=== PATIENT | female | born 1990 | race Caucasian/White ===

== ENCOUNTER 2024-10-29 12:20 | Outpatient (AMB) | payer OTHER, SELFPAY ==
--- NOTE | 2024-10-29 12:22 | A.OFFPC_ITS ---
Vital Signs 3 10/29/24 12:29 Height 5 ft 1 in Weight 110 lb BMI 20.8 BP 122/68 Blood Pressure Location Lt brachial Position Sitting Respiration 12 Pulse 72 Pulse Source Pulse Oximeter Temp 97.2 F Temp Source Oral Pulse Oximetry (%) 98 Oxygen Delivery Method Room Air Intake Visit Reasons: Anxiety/Depression Intake Note: New patient to establish care. Scalloper Required: No Allergies lamotrigine Allergy (Severe, Verified 10/29/24 12:44) Rash Medication List - Last Reconciled 10/29/24 by Ellen Yuen, [facility]- escitalopram oxalate mg PO lorazepam 0.5 mg PO DAILY PRN melatonin 3 mg PO BEDTIME olanzapine 2.5 mg PO BEDTIME Tobacco use date assessed: 10/29/24 Dental Screening Dental Screen Date: 10/29/24 Did you have a dental visit in the last 12 months?: No Did you have a dental problem in the last 6 months where you did not have access to dental care?: No Was dental information given to patient?: No HPI HPI Comments 2 History of Present Illness0 Details 34 y/o F with SWETHA, MDD Hospitalizations: [facility], then HRI in [place] for psych. Surgery: None Social: to , [place], no children. Fhx: Dad bipolar Health Maintenance Tdap declined Pap Specialists: Prescriber Telehealth Counselor - does not have, referred today. Here today to [facility] care Last PCP Peds: No medical records SWETHA/MDD present entire life; Jun and September 2024 started w/ panic attacks. See below for details, documented by This started after THC gummy. Paranoia [place] like she was dying Wondered about going to heaven or hell Thought was in on it Did not seek care Did not use THC again She was back to baseline after this. Then in September while at home, late around midnight, had caffiene via energy drinks x 2, had another panic attack. Same sx but not as severe. No hallucinations. [place] like she couldnt get out of it Shaking [place] like adrenaline mcmahon [place] suspicious of and family [place] like nightmare and couldnt wake up Was up all night could not sleep Sister was called She was brought to [facility] for eval and tx as she remained sx. I do not have these records Was awake for 36 hours Placed in crisis DX with psychosis [place] better after sleeping Was then brought to [place] , kim MAK, admitted for 3 days Was able to be sent home This is where the meds she is on now came from Last week had allergic reaction to lamotrigne Now on SSRI Had panic attack during med transition Did better this time Currently feels safe Denies SI/HI Denies chance of , just had period See note from below: Exam Awake alert NAD conjunctival inj bilat RRR LS CTAB Gaurded, mildly anxious yet appropriate Plan Declined Tdap Check labs Get records Refer to counseling RTO 6-8 weeks to review, sooner PRN Total time spent caring for the patient today was 45 minutes. This includes time spent before the visit reviewing the chart, time spent during the visit, and time spent after the visit on documentation, reviewing laboratory results, diagnostic imaging, medications, performing a medically necessary evaluation, counseling on diagnoses, care coordination, ordering appropriate tests, ordering appropriate medications, review of tests performed by other providers, reporting test results with the patient, communication with other healthcare providers. [facility] Medical History (Updated 10/29/24 @ 13:08 by Ellen Yuen, [facility]) Anxiety and depression Surgical History (Updated 10/29/24 @ 12:35 by Jannie Camp MA) No pertinent past surgical history Family History (Updated 10/29/24 @ 12:36 by Jannie Camp MA) Mother HTN (hypertension) High cholesterol Father HTN (hypertension) High cholesterol Substance abuse Mental health disorder Social History (Updated 10/29/24 @ 12:32 by Jannie Camp MA) Household Members: Spouse Both parents involved: No Caregiver staying overnight: No Housing: House Are you a primary youth care specialist to a significant other at home: No Do you presently have visiting nurse or other home services: No 75 years or older and lives alone: No Alcohol intake: current Alcohol intake frequency: a few times a month Patient Tobacco Use Status: Never used Tobacco e-Cigarette/Vaping Use: Never Used Second Hand Smoke Exposure: No service: No Current occupational status: unemployed Cognitive needs: No Hearing needs: No Vision needs: No Questionnaire PHQ-9 Over the last 2 weeks, how often have you been bothered by any of the following problems? 1. Little interest or pleasure in doing things: several days 2. Feeling down, depressed, or hopeless: several days 3. Trouble falling or staying asleep, or sleeping too much: not at all 4. Feeling tired or having little energy: several days 5. Poor appetite or overeating: not at all 6. Feeling bad about yourself - or that you are a failure or have let yourself or your family down: not at all 7. Trouble concentrating on things, such as reading the newspaper or watching television: not at all 8. Moving or speaking so slowly that other people could have noticed. Or the opposite - being so fidgety or restless that you have been moving around a lot more than usual: several days 9. Thoughts that you would be better off or of hurting yourself in some way: not at all Total score: 4 Depression Screening Interpretation: Negative Depression Screening Done: Yes 73853 - PHQ-9 Billing: Yes Source: Developed by Drs. Etienne Hardy, Maddy Pulliam, Derek Oleary and colleagues, with an educational aide from [employer]. Thrive Questionnaire Date Thrive assessed: 10/29/24 I am a: Patient What is your living situation today?: I have a steady place to live Within the past 12 months, did the food you bought not last and you didn't have the money to get more?: Never true Within the past 12 months, did you worry whether your food would run out before you got money to buy more?: Never true Do you have trouble paying for medicines?: No Do you have trouble getting transportation to medical appointments?: No Do you have trouble paying your heating and electricity bill?: No Do you have trouble taking care of your child, family member or friend?: No Do you have trouble with day-to-day activities such as bathing, preparing meals, shopping, managing finances, etc.?: No Are you currently unemployed and looking for a job?: No Are you interested in more education?: No Please select the resources that you would like help with: None Currently or been in a relationship where the following occur: No concerns reported THRIVE Score: 0 AUDIT C Alcohol Use Questionnaire (AUDIT-C) 1. How often do you have a drink containing alcohol?: Monthly or less 2. How many drinks containing alcohol do you have on a typical day when you are drinking?: 1 or 2 3. How often do you have six or more drinks on one occasion?: Never Total Score: 1 Score Reviewed/Action Taken: Yes SWETHA-7 AMB Questionnaire SWETHA-7 Date SWETHA - 7 assessed: 10/29/24 Feeling nervous, anxious, or on edge: 1 = Several days Not being able to stop or control worryin = Several days Worrying too much about different things: 1 = Several days Trouble relaxin = Several days Being so restless that it is hard to sit still: 1 = Several days Becoming easily annoyed or irritable: 1 = Several days Feeling afraid as if something awful might happen: 1 = Several days Total SWETHA-7 score (0-4 normal; 5-9 mild; 10-14 moderate; 15-21 severe): 7 Source: Developed by Drs. Etienne Hardy, Maddy Pulliam, Derek Oleary and colleagues, with an educational aide from [employer]. SWETHA-7 Assessment Billing SWETHA-7 Assessment Tool: SWETHA-7 Assessment 22932 Physical exam (Primary Care) Vital Signs: Last Vital Signs Temp 97.2 F 10/29/24 12:29 Pulse 72 10/29/24 12:29 Resp 12 10/29/24 12:29 BP 122/68 10/29/24 12:29 Pulse Ox 98 10/29/24 12:29 Oxygen Delivery Method Room Air 10/29/24 12:29 BMI result Body Mass Index 20.8 Tobacco/Smoking Status: Tobacco use Status Tobacco use date assessed 10/29/24 10/29/24 12:26 Patient Tobacco Use Status Never used Tobacco 10/29/24 12:32 e-Cigarette/Vaping Use Never Used 10/29/24 12:32 PHQ-9: PHQ-9 Score PHQ-9: Total score 4 10/29/24 12:22 Depression Screening Interpretation: Negative Thrive Assessment: Date of Thrive Assessment Date Thrive assessed 10/29/24 10/29/24 12:22 Currently or been in a relationship where the following occur: No concerns reported Coding Level of Care Code New Pt Level 4 (84091) Complex EM visit Add On G2211 Diagnoses Encounter to establish care Z76.89 SWETHA (generalized anxiety disorder) F41.1 Severe episode of recurrent major depressive disorder, with psychotic features F33.3 Major depression episode severity: severe Psychotic features: with psychotic features Panic attack F41.0 Family history of bipolar disorder Z81.8 Tetanus, diphtheria, and acellular pertussis (Tdap) vaccination declined Z28.21 History of admission to inpatient psychiatry department Z86.59 Additional Codes SWETHA-7 Assessment Billing - SWETHA-7 Assessment Tool: SWETHA-7 Assessment 11324 ([id number]) PHQ-9 - 25715 - PHQ-9 Billing: Yes ([id number]) Assessment & Plan Assessment & Plan (1) Encounter to establish care: Code(s): Z76.89 - Persons encountering health services in other specified circumstances (2) SWETHA (generalized anxiety disorder): Code(s): F41.1 - Generalized anxiety disorder Category: Medical (3) MDD (major depressive disorder), recurrent episode: Code(s): F33.9 - Major depressive disorder, recurrent, unspecified Category: Medical Qualifiers: Major depression episode severity: severe Psychotic features: with psychotic features Qualified Code(s): F33.3 - Major depressive disorder, recurrent, severe with psychotic symptoms (4) Panic attack: Code(s): F41.0 - Panic disorder [episodic paroxysmal anxiety] Category: Medical (5) Family history of bipolar disorder: Comment: dad Code(s): Z81.8 - Family history of other mental and behavioral disorders Category: Medical (6) Tetanus, diphtheria, and acellular pertussis (Tdap) vaccination declined: Code(s): Z28.21 - Immunization not carried out because of patient refusal Category: Medical (7) History of admission to inpatient psychiatry department: Onset Date: ~09/2024 Code(s): Z86.59 - Personal history of other mental and behavioral disorders Category: Medical Plan . Orders: Orders 2 IRON PROFILE Today F33.9 - Major depressive disorder, recurrent, unspecified, F41.0 - Panic disorder [episodic paroxysmal anxiety], F41.1 - Generalized anxiety disorder Lipid Panel Today F33.9 - Major depressive disorder, recurrent, unspecified, F41.0 - Panic disorder [episodic paroxysmal anxiety], F41.1 - Generalized anxiety disorder Microalbumin, Random (w Creat) Today F33.9 - Major depressive disorder, recurrent, unspecified, F41.0 - Panic disorder [episodic paroxysmal anxiety], F41.1 - Generalized anxiety disorder Vitamin B12 and Folate Today F33.9 - Major depressive disorder, recurrent, unspecified, F41.0 - Panic disorder [episodic paroxysmal anxiety], F41.1 - Generalized anxiety disorder Complete Blood Count no Diff Today F33.9 - Major depressive disorder, recurrent, unspecified, F41.0 - Panic disorder [episodic paroxysmal anxiety], F41.1 - Generalized anxiety disorder Comprehensive Met. Panel Today F33.9 - Major depressive disorder, recurrent, unspecified, F41.0 - Panic disorder [episodic paroxysmal anxiety], F41.1 - Generalized anxiety disorder Ferritin Today F33.9 - Major depressive disorder, recurrent, unspecified, F41.0 - Panic disorder [episodic paroxysmal anxiety], F41.1 - Generalized anxiety disorder Hemoglobin A1c Today F33.9 - Major depressive disorder, recurrent, unspecified, F41.0 - Panic disorder [episodic paroxysmal anxiety], F41.1 - Generalized anxiety disorder TSH reflex Free T4 Today F33.9 - Major depressive disorder, recurrent, unspecified, F41.0 - Panic disorder [episodic paroxysmal anxiety], F41.1 - Generalized anxiety disorder Vitamin D 25-OH Total Today F33.9 - Major depressive disorder, recurrent, unspecified, F41.0 - Panic disorder [episodic paroxysmal anxiety], F41.1 - Generalized anxiety disorder Referrals 2 Nurse Navigator Referral F33.9 - Major depressive disorder, recurrent, unspecified, F41.0 - Panic disorder [episodic paroxysmal anxiety], F41.1 - Generalized anxiety disorder, Z81.8 - Family history of other mental and behavioral disorders Patient Instructions: Walk-In Care (Urgent Care): We Make it Easy Walk-in for urgent medical issues such as: ? Seasonal Allergies ? Insect Bites ? Cough ? Diarrhea ? Acute Asthma Attacks ? Back, Knee or Joint Pain ? Ear Infection ? Fever without a Rash ? Headaches ? Nausea ? [place] Eye, Rash or Skin Irritation ? Sore Throat ? Sports Physicals ? Vomiting Most insurances are accepted. Patients do not need to be part of the [facility] to seek care at the walk-in clinic. Locations [facility] Dasha Richardson, [place] [address] ? [phone] [facility] in [place] provides services to ages 18 and over. Open Saturday-Saturday: 8 a.m. to 5 p.m. and Saturday: 9 a.m. to 3 p.m.* *Hours may vary due to staffing availability. To confirm Walk-In Care hours in [place], please call [phone]. [address] [place] [address] ? [phone] [facility] Walk-In Care in [place] provides services to ages 12 and over. Open Saturday-Saturday: 8 a.m. to 5 p.m. Hours may vary due to staffing availability. To confirm Walk-In Care hours in [place], please call [phone]. LABORATORY SERVICES: [facility] ? Primary Location [address] [place] [address] Saturday through Saturday 6:00 AM ? 5:00 PM Saturday 7:00 AM ? 11:00 AM* [phone] The [facility] is centrally located near the front entrance of the [facility] for easy outpatient access. Convenient parking is provided for outpatients. *Hours may vary due to staffing availability. To confirm Laboratory hours for any location, please call [phone]. Offsite Location For your convenience, we offer offsite laboratory draw stations at the following locations: [address] [place] [address] ? [address], [address] Saturday through Saturday 7:30 AM ? 1:00 PM* [phone] *Hours may vary due to staffing availability. To confirm Laboratory hours for any location, please call [phone]. [place] ? [address] Saturday through Saturday 6:00 AM ? 3:30 PM* Saturday 6:30 AM ? 3 PM* [phone] *Hours may vary due to staffing availability. To confirm Laboratory hours for any location, please call [phone] [place] [address] Saturday through Saturday 7:30 AM ? 4:00 PM* [phone] *Hours may vary due to staffing availability. To confirm Laboratory hours for any location, please call [phone] [place] [address] Saturday through 9:00 AM ? 4:00 PM* *Hours may vary due to staffing availability. To confirm Laboratory hours for any location, please call [phone]. Appointments are not necessary. Walk-ins are welcome. Like all the departments throughout the [facility], our Lab undergoes frequent reviews to ensure the quality and accuracy of test results, and our staff takes special pride in its status as a nationally accredited facility. Patient Portal: ONE PATIENT. ONE RECORD. BETTER CARE. [facility] has a fully integrated, cutting- edge mobile electronic health information system that has revolutionized the way we care for our patients and manage our organization. This system improves communication and coordination enabling us to provide safe, higher-quality care, and an overall positive experience for staff and patients. Our first priority, as always, is to deliver the highest quality care possible. The system is running in the background supporting that priority. This portal is for all [facility] services and practices. If you are experiencing any technical difficulties with enrolling or logging into the Patient Portal please complete the [facility] Patient Portal Technical Support Form. [facility] now offers a new secure on-line interactive tool for patients to review their health information ? ?Patient Portal. This interactive web portal will enable patients and their families to take an active role in their care by providing easy, secure access to their health information via the internet. The Patient Portal provides patients with instant access to their health information, including laboratory results, medications, allergies, demographic information, visit history, and more. In addition to managing their own care, parents and health care proxies with authorized consent will appreciate the ability to access the records of those individuals for whom they provide care. Please note: if you wish to gain access (Proxy) to another patient?s portal, you will be required to come to the Medical Records Department in person at [facility]. Both the patient giving proxy access and the proxy will need to provide photo identification and complete the appropriate authorization. The Patient Portal also allows track their appointments online. The [facility] Patient Portal also saves patients time by allowing them to submit updates to their demographic and contact information prior to their visits. Portal email notifications will also alert patients to any new activity on their portal, such as test results and new appointments. In order to initially enroll in the [facility] Patient Portal, you will need to enter some required information including the following: * your [facility] Medical Record number * your personal home email address * name * date of Please note: In order to enroll in the [facility] Patient Portal, we need to have your email address on file in your electronic medical record. ?The email address needs to be specific for one person (yourself) in order for your Portal enrollment to be successful. ?You can update your email address in person with our Registration staff when you are registering for a hospital visit. ?Otherwise, you will need to come to the Health Information Management (Medical Records) Department at [facility]. ?We are open from Saturday ? Saturday from 7:30 a.m. ? 4:30 p.m. ?You will be required to present a photo id. Once you have successfully enrolled in the Patient Portal, you will receive a one-time user id and password for the Portal, sent to your email address. ?This will allow you to log into the Patient Portal within 99 hrs and reset your own logon id and password, and define personal security questions. ?Once your permanent login and password have been set, you can log into the [facility] Patient Portal at any time via the blue button above or from the Portal Logon button on any page of the [facility] website. [facility] and [facility] encourage all of our patients to enroll in Patient Portal as it presents a valuable opportunity for patients and their families to actively participate in their care and stay healthy Welcome to [facility]. ?We look forward to working with you. National Suicide and Crisis Lifeline: Available 24 hours a day, 7 days a week, 365 days a year Dial 988 with any telephone to speak to someone immediately [facility] [address], [place] [id number] , Walk ins [facility] (Mental / Behavioral health therapist: [address], [place] [id number] [facility] at [facility]: [address] [place] [address] Open from 10am - 12pm (walk ins welcome) [facility] Crisis Services: [address] [place] [address] Walk in hours from 10am - 12pm Behavioral health Network: [address] [place] [address] [address] [place] [address] Saturday through Saturday 8am - 8pm Saturday and Saturday 9am - 5pm Crisis Hotlines Suicide prevention, domestic violence, and other crisis hotlines for youth, young adults, and their friends and families. [facility]: [facility] Safeline helps youth who have run away, are thinking about running away, or who already ran away but are ready to come home. Parents and guardians can also contact the hotline if they are worried about their child running away or if their child has already left home. The hotline is available 24 hours a day, seven days a week. Youth, parents, and guardians can also use the online chat feature on the [facility]'s website to ask for help and get support, or can send a text to [facility]. [facility] National Suicide Prevention Lifeline: The [place] Suicide Prevention Lifeline is a network of local crisis centers that are available 03/12 to provide support for youth and adults who are in any kind of emotional crisis. In addition to the main hotline number listed above, there are several other numbers to call depending on your needs: Finnish Language: Deaf and Hard of [phone] Veterans: Disaster Distress: Anyone can also use their online chat feature on their website. [place] Suicide Prevention Lifeline [facility] Helpline: The [facility] Helpline is available to anyone in [place] who is need of emotional support. Anyone can call or text the helpline to receive help from specially trained volunteers. [place] high school and college students can also get online support through the [employer]_ program. For high school students, volunteers ages 15-18 are available Saturday- from 6-9PM. For college students, [employer] is available Saturday-Saturday from 5-9PM. The Aaron Project - The Aaron Project is a 03/12 crisis intervention and suicide prevention hotline for LGBTQ youth. Youth can also text Aaron to for support, or use the online chat feature on the [employer] Project's website. [employer] is available Saturday-Saturday between 3-10PM. [employer] is available seven days a week between 3-10PM. SafeLink: SafeLink is for anyone who is being affected by domestic violence or dating violence. Volunteers at [employer] speak Thai and Finnish, and [employer] also has a service that can provide translation in more than 130 languages. TTY:
[2024-10-29 12:29] VITALS: BP 122/68; PULSE 72; RESP 12; TEMP 36.2; O2SAT 98; BMI 20.8
--- OUTSIDE RECORDS SUMMARY | 2024-10-29 13:30 | XMS_ITS | Clinical Summary ---
Author Organization [facility] Address [address] [place] [address] Phone Care Team Providers Care Forming Process Worker Name Role Phone Fausto Fernandez MD Primary Care Provide r Allergies No known active allergies Medications No known medications Encounters Date Type Department Care Team Description 09/20/2024 11:16 AM EDT - 09/21/2024 9:57 AM EDT Emergency [facility] Emergency [address] [place] [address] Celia Cota DO Psychosis, unspecified psychosis type ([facility] V24, [facility] V28) (Primary Dx) Discharge Disposition: Psych[facility] Hospital from Last 3 Months Medical History Medical History Date Comments Patient denies medical problems 09/20/2024 Bipolar disorder, unspecified ([facility] V24, [facility] V28) 09/20/2024 per [facility] clinician Social History Tobacco Use Types Packs/Day Years Used Date Smoking Tobacco: Never Smokeless Tobacco: Never Tobacco Cessation:Counseling Given: Not Answered Alcohol Use Standard Drinks/Week Comments Yes 0 (1 standard drink = 0.6 oz pur e alcohol) social drinking only Comments Unknown Sex and Gender Information Value Date Recorded Sex Assigned at Not on file Legal Sex Female 6:59 AM EST Gender Identity Not on file Sexual Orientation Not on file Obstetrics History Last Filed Vital Signs Vital Sign Reading Time Taken Comments Blood Pressure 142/86 09/21/2024 3:10 AM EDT Pulse 104 09/21/2024 3:10 AM EDT Temperature 36.7 C (98 F) 09/21/2024 3:10 AM EDT Respiratory Rate 16 09/21/2024 3:10 AM EDT Oxygen Saturation 95% 09/21/2024 3:10 AM EDT Inhaled Oxygen Concentration - - Weight 47.6 kg (105 lb) 09/20/2024 11:56 AM EDT Height 154.9 cm (5' 1 ) 09/20/2024 11:56 AM EDT Body Mass Index 19.84 09/20/2024 11:56 AM EDT Plan of Treatment Health Maintenance Due Date Last Done Comments DTaP,Tdap,and Td Vaccines (1 - Tdap) 02/22/2011 Hepatitis B Vaccines (1 of 3 - 19+ 3-dose series) 02/22/2011 Cervical Cancer Screening: P ap Smear 02/22/2013 COVID-19 Vaccine (2023-2 5 season) 2024 Depression Screening 09/20/2024 HIV Screening 09/20/2024 Hepatitis C Screening 09/20/2024 Social Influencers of Health Screening 09/20/2024 Influenza Vaccine (Season Ended) 2025 HIB Vaccines Aged Out No longer eligi ble based on patient's age to complete this topic HPV Vaccines Aged Out No longer eligi ble based on patient's age to complete this topic Hepatitis A Vaccines Aged Out No long er eligible based on patient's age to complete this topic IPV Vaccines Aged Out No longer eligi ble based on patient's age to complete this topic MMR Vaccines Aged Out No longer eligi ble based on patient's age to complete this topic Meningococcal ACWY Vaccine Aged Out N o longer eligible based on patient's age to complete this topic Meningococcal B Vaccine Aged Out No l onger eligible based on patient's age to complete this topic Pneumococcal Vaccine: Pediat rics (0 to 5 Years) and At-Risk Patients (6 to 64 Years) Aged Out No longer eligible b ased on patient's age to complete this topic RSV Immunization Patients Un vernon 20 months Aged Out No longer eligible b ased on patient's age to complete this topic Varicella Vaccines Aged Out No longer eligible based on patient's age to complete this topic Procedures Procedure Name Priority Date/Time Associated Diagnosis Comments AYALA URINE CULTURE TUBE STAT 09/20/2024 11:40 AM EDT URINALYSIS WITH REFLEX MICROSCOPIC AND CULTURE STAT 09/20/2024 11:40 AM EDT URINALYSIS WITH REFLEX MICROSCOPIC AND CULTURE STAT 09/20/2024 11:40 AM EDT POC , URINE DIAGNOSTIC STAT 09/20/2024 11:17 AM EDT METHADONE SCREEN, URINE STAT 09/20/2024 11:11 AM EDT PHENCYCLIDINE, URINE STAT 09/20/2024 11:11 AM EDT BUPRENORPHINE SCREEN, URINE STAT 09/20/2024 11:11 AM EDT DRUG ABUSE SCREEN 8A PANEL, URINE STAT 09/20/2024 11:11 AM EDT CBC WITH AUTO DIFFERENTIAL STAT 09/20/2024 10:54 AM EDT SALICYLATE LEVEL STAT 09/20/2024 10:5 4 AM EDT ACETAMINOPHEN LEVEL STAT 09/20/2024 1 0:54 AM EDT ETHANOL STAT 09/20/2024 10:54 AM EDT COMPREHENSIVE METABOLIC PANEL STAT 09/20/2024 10:54 AM EDT CBC AND DIFFERENTIAL STAT 09/20/2024 10:54 AM EDT from Last 3 Months Results * Urinalysis with reflex microscopic and culture (09/20/2024 11:40 AM EDT) Specific Elbert Urine 1.011 1.003 - 1.030 LAB URINALYSIS - AUTOMATED METHOD 09/20/2024 12:29 PM EDT [facility] pH, Urine 6.0 5.0 - 8.0 pH LAB URINALYSIS - AUTOMATED METHOD 09/20/2024 12:29 PM EDT [facility] Leukocytes, Urine Negative Negative LAB URINALYSIS - AUTOMATED METHOD 09/20/2024 12:[address] [facility] Nitrite, Urine Negative Negative LAB URINALYSIS - AUTOMATED METHOD 09/20/2024 12:[address] [facility] Protein, Urine Trace <=Trace mg/dL LAB URINALYSIS - AUTOMATED METHOD 09/20/2024 12:[address] [facility] Glucose, Urine Negative Negative mg/dL LAB URINALYSIS - AUTOMATED METHOD 09/20/2024 12:[address] [facility] Ketones, Urine Negative Negative mg/dL LAB URINALYSIS - AUTOMATED METHOD 09/20/2024 12:[address] [facility] Urobilinogen, Urine 0.2 0.2 - 1.0 mg/dL LAB URINALYSIS - AUTOMATED METHOD 09/20/2024 12:[address] [facility] Bilirubin, Urine Negative Negative LAB URINALYSIS - AUTOMATED METHOD 09/20/2024 12:[address] [facility] Blood, Urine Negative Negative LAB URINALYSIS - AUTOMATED METHOD 09/20/2024 12:[address] [facility] Urine Urine specimen obtained by clean catch procedure / Unknown Non-blood Collection / Unknown 09/20/2024 11:40 AM EDT 09/20/2024 12:07 PM EDT us Celia Cota DO LAB URINE ORDERABLES Hortencia l Result [facility] [address] [place] [address], [place] [phone] * Ayala urine culture tube (09/20/2024 11:40 AM EDT) Extra Tube Hold for add-ons. 09/20/2024 2:01 PM EDT [facility] Comment:Auto resulted. Urine Urine specimen obtained by clean catch procedure / Unknown Non-blood Collection / Unknown 09/20/2024 11:40 AM EDT 09/20/2024 12:07 PM EDT Celia Cota DO LAB URINE ORDERABLES Hortencia l Result [facility] [address] [place] [address], [place] [phone] * POC , urine manually resulted (09/20/2024 11:17 AM EDT) HCG, Ur POC Negative Negative POC hCG Int QC Pass? Yes Yes Urine Urine specimen obtained by clean catch procedure / Unknown 09/20/2024 11:17 AM EDT Osmaneleonora Tarik Mushtaq Cota DO POINT OF CARE TEST ENTER/ EDIT ORDERABLES Final Result * Drug abuse screen 8a panel, urine (09/20/2024 11:11 AM EDT) Amphetamine Screen, Ur Negative Negative LAB CHEMISTRY METHOD 09/20/2024 12:37 PM EDT [facility] Comment:Certain OTC medicati ons containing ephedrine, phenylephrine, pseudoephedrine and phenylpropanolamine can cause false positive results. Barbiturate Screen, Ur Negative Negative LAB CHEMISTRY METHOD 09/20/2024 12:37 PM EDT [facility] Benzodiazepine Screen, Ur Negative Negative LAB CHEMISTRY METHOD 09/20/2024 12:37 PM EDT [facility] Cocaine Screen, Ur Negative Negative LAB CHEMISTRY METHOD 09/20/2024 12:37 PM EDT [facility] Opiate Screen, Ur Negative Negative LAB CHEMISTRY METHOD 09/20/2024 12:37 PM EDT [facility] Cannabinoid (THC) Screen, Ur Negative Negative LAB CHEMISTRY METHOD 09/20/2024 12:37 PM EDT [facility] Comment:Specimens from patie nts taking pantoprazole sodium (Protonix) have been shown to produce false positive results. Oxycodone Screen, Ur Negative Negative LAB CHEMISTRY METHOD 09/20/2024 12:37 PM EDT [facility] Fentanyl, Ur Negative Negative LAB CHEMISTRY METHOD 09/20/2024 12:37 PM EDT [facility] Urine Urine specimen obtained by clean catch procedure / Unknown Non-blood Collection / Unknown 09/20/2024 11:11 AM EDT 09/20/2024 12:08 PM EDT [facility] - 09/20/2024 12:37 PM EDT Assay cutoffs: Amphetamines 1000 ng/mL Barbiturates 200 ng/mL Benzodiazepines 200 ng/mL Cocaine 300 ng/mL Fentanyl 1 ng/mL Opiates 300 ng/mL Oxycodone 100 ng/mL THC 50 ng/mL Semi-quantitative assay for screening purposes only. Unconfirmed screening result should not be used for non-medical purposes. *ALTERNATE METHOD CONFIRMATION DONE UPON REQUEST ONLY* [employer] LAB URINE ORDERABLES Hortencia l Result [facility] [address] [place] [address], [place] [phone] * Buprenorphine screen, urine (09/20/2024 11:11 AM EDT) Buprenorphine Screen Urine Negative Negative LAB CHEMISTRY METHOD 09/20/2024 12:37 PM EDT [facility] Urine Urine specimen obtained by clean catch procedure / Unknown Non-blood Collection / Unknown 09/20/2024 11:11 AM EDT 09/20/2024 12:08 PM EDT [facility] - 09/20/2024 12:37 PM EDT Assay cutoff 5 ng/mL Semi-quantitative assay for screening purposes only. Unconfirmed screening result should not be used for non-medical purposes. *ALTERNATE METHOD CONFIRMATION DONE UPON REQUEST ONLY* us Ting Ho Mushtaq Cota DO LAB URINE ORDERABLES Hortencia l Result Performing Organization Address [facility]/ZIP Co de Phone Number [facility] [address] [place] [address], [place] [phone] * Methadone, urine (09/20/2024 11:11 AM EDT) Methadone Screen, Urine Negative Negative LAB CHEMISTRY METHOD 09/20/2024 12:37 PM EDT [facility] Comment: Assay cutoff 300 ng/mL Semi-quantitative assay for screening purposes only. Unconfirmed screening result should not be used for non-medical purposes. *ALTERNATE METHOD CONFIRMATION DONE UPON REQUEST ONLY* Urine Urine specimen obtained by clean catch procedure / Unknown Non-blood Collection / Unknown 09/20/2024 11:11 AM EDT 09/20/2024 12:08 PM EDT Celia Tarik Mushtaq Cota DO LAB URINE ORDERABLES Hortencia l Result Performing Organization Address [facility] Co de Phone Number [facility] [address] [place] [address], [place] [phone] * Phencyclidine, urine (09/20/2024 11:11 AM EDT) PCP Scrn, Ur Negative Negative LAB CHEMISTRY METHOD 09/20/2024 12:37 PM EDT [facility] Comment: Assay cutoff 25 ng/mL Semi-quantitative assay for screening purposes only. Unconfirmed screening result should not be used for non-medical purposes. *ALTERNATE METHOD CONFIRMATION DONE UPON REQUEST ONLY* Urine Urine specimen obtained by clean catch procedure / Unknown Non-blood Collection / Unknown 09/20/2024 11:11 AM EDT 09/20/2024 12:08 PM EDT Celia Montanez Mushtaq Cota DO LAB URINE ORDERABLES Hortencia l Result Performing Organization Address [facility]/ZIP Co de Phone Number [facility] [address] [place] [address], [place] [phone] * (ABNORMAL) CBC auto differential (09/20/2024 10:54 AM EDT) [facility] Signature WBC 12.9(H) 4.8 - 10.8 K/mcL LAB HEMETOLOGY METHOD 09/20/2024 11:[address] [facility] RBC 4.50 3.80 - 4.80 M/mcL LAB HEMETOLOGY METHOD 09/20/2024 11:[address] [facility] Hemoglobin 13.0 11.5 - 16.0 g/dL LAB HEMETOLOGY METHOD 09/20/2024 11:[address] [facility] Hematocrit 38.1 35.0 - 47.0 % LAB HEMETOLOGY METHOD 09/20/2024 11:[address] [facility] MCV 84.7 79.0 - 98.0 FL LAB HEMETOLOGY METHOD 09/20/2024 11:[address] [facility] MCH 28.9 27.0 - 32.0 pcg LAB HEMETOLOGY METHOD 09/20/2024 11:[address] [facility] MCHC 34.1 32.0 - 37.0 g/dL LAB HEMETOLOGY METHOD 09/20/2024 11:[address] [facility] RDW 12.1 11.0 - 15.0 % LAB HEMETOLOGY METHOD 09/20/2024 11:[address] [facility] Platelets 302 130 - 400 K/mcL LAB HEMETOLOGY METHOD 09/20/2024 11:[address] [facility] MPV 10.5 7.0 - 11.0 FL LAB HEMETOLOGY METHOD 09/20/2024 11:[address] [facility] NRBC 0.0 <1.0 % LAB HEMETOLOGY METHOD 09/20/2024 11:[address] [facility] NRBC Absolute 0.00 <0.10 K/mcL LAB HEMETOLOGY METHOD 09/20/2024 11:[address] [facility] Neutrophils Relative 82.8 % LAB HEMETOLOGY METHOD 09/20/2024 11:[address] [facility] Lymphocytes Relative 12.0 % LAB HEMETOLOGY METHOD 09/20/2024 11:[address] [facility] Monocytes Relative 4.6 % LAB HEMETOLOGY METHOD 09/20/2024 11:[address] [facility] Eosinophils Relative 0.0 % LAB HEMETOLOGY METHOD 09/20/2024 11:[address] [facility] Basophils Relative 0.3 % LAB HEMETOLOGY METHOD 09/20/2024 11:[address] [facility] Immature Granulocytes Relative 0.3 % LAB HEMETOLOGY METHOD 09/20/2024 11:[address] [facility] Neutrophils Absolute 10.72(H) 1.50 - 7.00 K/mcL LAB HEMETOLOGY METHOD 09/20/2024 11:[address] [facility] Lymphocytes Absolute 1.55 1.00 - 5.00 K/mcL LAB HEMETOLOGY METHOD 09/20/2024 11:[address] [facility] Monocytes Absolute 0.59 0.20 - 1.00 K/mcL LAB HEMETOLOGY METHOD 09/20/2024 11:[address] [facility] Eosinophils Absolute 0.00 0.00 - 0.50 K/mcL LAB HEMETOLOGY METHOD 09/20/2024 11:[address] [facility] Basophils Absolute 0.04 0.00 - 0.20 K/mcL LAB HEMETOLOGY METHOD 09/20/2024 11:[address] [facility] Immature Granulocytes Absolute 0.04(H) 0.00 - 0.03 K/mcL LAB HEMETOLOGY METHOD 09/20/2024 11:07 AM EDT [facility] Blood Venous blood specimen / Unknown Venipuncture / Unknown 09/20/2024 10:54 AM EDT 09/20/2024 11:00 AM EDT us Celia Cota DO LAB BLOOD ORDERABLES Hortencia l Result Performing Organization Address [facility]/ZIP Co de Phone Number [facility] [address] [place] [address], [place] [phone] * Ethanol (09/20/2024 10:54 AM EDT) Ethanol Level 5 0 - 10 mg/dL LAB CHEMISTRY METHOD 09/20/2024 11:26 AM EDT [facility] Blood Venous blood specimen / Unknown Venipuncture / Unknown 09/20/2024 10:54 AM EDT 09/20/2024 11:00 AM EDT Celia Cota DO LAB BLOOD ORDERABLES Hortencia l Result Performing Organization Address [facility] Co de Phone Number [facility] [address] [place] [address], [place] [phone] * (ABNORMAL) Acetaminophen level (09/20/2024 10:54 AM EDT) Acetaminophen Level <2.0(L) 10.0 - 30.0 mcg/mL LAB CHEMISTRY METHOD 09/20/2024 11:31 AM EDT [facility] Blood Venous blood specimen / Unknown Venipuncture / Unknown 09/20/2024 10:54 AM EDT 09/20/2024 11:00 AM EDT Celia Cota DO LAB BLOOD ORDERABLES Hortencia l Result Performing Organization Address City/[facility]/ZIP Co de Phone Number [facility] [address] [place] [address], [place] [phone] * Salicylate level (09/20/2024 10:54 AM EDT) Pathologist [facility] Salicylate Level 2.0 2.0 - 29.0 mg/dL LAB CHEMISTRY METHOD 09/20/2024 11:[address] [facility] Blood Venous blood specimen / Unknown Venipuncture / Unknown 09/20/2024 10:54 AM EDT 09/20/2024 11:00 AM EDT us Celia Landin Cota DO LAB BLOOD ORDERABLES Hortencia l Result [facility] [address] [place] [address], [place] [phone] * (ABNORMAL) Comprehensive metabolic panel (09/20/2024 10:54 AM EDT) Pathologist [facility] Sodium 141 133 - 145 mmol/L LAB CHEMISTRY METHOD 09/20/2024 11:[address] [facility] Potassium 3.8 3.5 - 5.5 mmol/L LAB CHEMISTRY METHOD 09/20/2024 11:[address] [facility] Chloride 110 96 - 110 mmol/L LAB CHEMISTRY METHOD 09/20/2024 11:[address] [facility] CO2 23 21 - 32 mmol/L LAB CHEMISTRY METHOD 09/20/2024 11:[address] [facility] Anion Gap 8 3 - 11 LAB CHEMISTRY METHOD 09/20/2024 11:[address] [facility] Glucose 138(H) 70 - 100 mg/dL LAB CHEMISTRY METHOD 09/20/2024 11:[address] [facility] BUN 7 5 - 25 mg/dL LAB CHEMISTRY METHOD 09/20/2024 11:[address] [facility] Creatinine 0.69 0.50 - 1.10 mg/dL LAB CHEMISTRY METHOD 09/20/2024 11:[address] [facility] eGFR 118 >=60 mL/min/1. 73m2 LAB CHEMISTRY METHOD 09/20/2024 11:[address] [facility] Comment:Calculation based on the Chronic Kidney Disease Epidemiology Collaboration (CKD-EPI) equation refit without adjustment for race. BUN/Creatinine Ratio 10.1 LAB CHEMISTRY METHOD 09/20/2024 11:[address] [facility] Calcium 9.3 8.5 - 10.5 mg/dL LAB CHEMISTRY METHOD 09/20/2024 11:[address] [facility] AST (SGOT) 26 10 - 42 unit/L LAB CHEMISTRY METHOD 09/20/2024 11:[address] [facility] ALT (SGPT) 40 10 - 60 unit/L LAB CHEMISTRY METHOD 09/20/2024 11:[address] [facility] Alkaline Phosphatase 51 42 - 121 unit/L LAB CHEMISTRY METHOD 09/20/2024 11:[address] [facility] Total Protein 7.6 6.0 - 8.0 g/dL LAB CHEMISTRY METHOD 09/20/2024 11:[address] [facility] Albumin 4.4 3.2 - 5.0 g/dL LAB CHEMISTRY METHOD 09/20/2024 11:[address] [facility] Total Bilirubin 0.4 0.0 - 1.4 mg/dL LAB CHEMISTRY METHOD 09/20/2024 11:[address] [facility] Blood Venous blood specimen / Unknown Venipuncture / Unknown 09/20/2024 10:54 AM EDT 09/20/2024 11:00 AM EDT us Celia Cota DO LAB BLOOD ORDERABLES Hortencia l Result [facility] [address] [place] [address], [place] [phone] from Last 3 Months Insurance [facility] [employer] Care Teams Forming Process Worker Relationship Specialty Start Date End Date Fausto Fernandez MD [address] [place] [address] PCP - General Internal Medicine 03/19/19
== END 2024-10-29 13:02 | disposition home or self-care (01) ==
LOC: HO.HMCFM 12:21
PROVIDERS: PCP Nurse Practitioner Family; Visit Provider Nurse Practitioner Family
DX: Z76.89 Persons encountering health services in other specified circumstances (principal); F41.1 Generalized anxiety disorder; F33.3 Major depressive disorder, recurrent, severe with psychotic symptoms; F41.0 Panic disorder [episodic paroxysmal anxiety]; Z81.8 Family history of other mental and behavioral disorders; Z28.21 Immunization not carried out because of patient refusal; Z86.59 Personal history of other mental and behavioral disorders

== ENCOUNTER → 2024-10-29 12:20 | Outpatient (BNVA) | payer OTHER, SELFPAY | PROVIDERS: PCP Nurse Practitioner Family; Visit Provider Nurse Practitioner Family | DX: F41.1 Generalized anxiety disorder (principal); F41.0 Panic disorder [episodic paroxysmal anxiety]; F33.3 Major depressive disorder, recurrent, severe with psychotic symptoms; Z76.89 Persons encountering health services in other specified circumstances; Z81.8 Family history of other mental and behavioral disorders; Z28.21 Immunization not carried out because of patient refusal; Z86.59 Personal history of other mental and behavioral disorders | CPT/HCPCS: 96127; 99202 ==

== ENCOUNTER 2024-10-29 13:08 | Outpatient (REF) | payer OTHER, SELFPAY ==
[2024-10-29 17:48] LABS: Hematocrit 38.5 % (37.0-47.0); Hemoglobin 13.2 g/dl (12.0-16.0); Mean Corpuscular HGB Conc 34.3 g/dl (31.0-35.0); Mean Corpuscular Hemoglobin 28.9 pg (27.0-33.0); Mean Corpuscular Volume 84.4 fL (80.0-98.0); Mean Platelet Volume 11.6 fL (9.4-12.3); Platelet Count 266 X10*3/uL (160-400); Red Blood Count 4.56 X10*6/uL (4.20-5.50); Red Cell Distribution Width 12.5 % (11.0-16.0); White Blood Count 6.2 X10*3/uL (4.8-10.8)
[2024-10-29 17:49] LABS: Estimated Average Glucose 114 mg/dL; Hemoglobin A1c % 5.6 % (<6.0)
[2024-10-29 18:04] LABS: Creatinine Urine 15.57 mg/dL; Microalbumin Urine < 5.0 mg/L
[2024-10-29 18:04] LABS: Alanine Aminotransferase 22 U/L (0-31); Albumin Level 4.7 g/dL (3.5-5.0); Alkaline Phosphatase 42 U/L (39-117); Anion Gap 14 (12-20); Aspartate Amino Transferase 28 U/L (5-31); Bilirubin Total 0.5 mg/dL (0.0-1.0); Blood Urea Nitrogen 16 mg/dL (9-16); Calcium 9.5 mg/dL (8.4-10.2); Carbon Dioxide 24 mmol/L (22-29); Chloride 106 mmol/L (96-108); Cholesterol 215 mg/dL (<200); Estimated Glomerular Filt Rate > 60; Glucose Random 89 mg/dL (60-115); HDL Cholesterol 57 mg/dL (>40); Iron 114 mcg/dL (30-160); LDL Cholesterol Calculated 149 mg/dL (<100); Percent Iron Saturation 36 % (15-50); Potassium 3.8 mmol/L (3.3-5.1); Sodium 140 mmol/L (135-145); Total Iron Binding Capacity 321 mcg/dL (228-428); Total Protein 7.2 g/dL (6.5-8.0); Triglycerides 47 mg/dL (<150); Unsaturated Iron Binding 207 ug/dL
[2024-10-29 18:22] LABS: Ferritin 9 ng/mL (10-122); TSH reflex Free T4 0.57 uIU/mL (0.32-4.0); Vitamin D 25-OH Total 125.5 ng/mL (>30)
[2024-10-29 18:27] LABS: Folate 9.9 ng/mL (> or = 4.0); Vitamin B12 850 pg/mL (200-900)
== END 2024-10-29 13:09 | disposition home or self-care (01) ==
LOC: HO.WFDLDS 13:08
PROVIDERS: Visit Provider Nurse Practitioner Family
DX: F41.0 Panic disorder [episodic paroxysmal anxiety] (principal); F33.9 Major depressive disorder, recurrent, unspecified; F41.1 Generalized anxiety disorder
CPT/HCPCS: 36415; 80053; 80061; 82306; 82570; 82607; 82728; 82746; 83036; 83540; 84443; 85027

== ENCOUNTER 2024-12-16 08:31 | Outpatient (AMB) | payer OTHER, SELFPAY ==
--- NOTE | 2024-12-16 08:38 | MHC.PC.OV ---
Vital Signs 12/16/24 08:42 Height 5 ft 1 in Weight 111 lb 8 oz BMI 21.1 BP 98/66 Blood Pressure Location Rt brachial Position Sitting Respiration 12 Pulse 65 Pulse Source Pulse Oximeter Temp 97.2 F Temp Source Oral Pulse Oximetry (%) 100 Oxygen Delivery Method Room Air Intake Visit Reasons: 6-8 weeks 30 min fu labs/est care Intake Note: Follow up to review labs Career Resource Specialist Required: No Allergies lamotrigine Allergy (Severe, Verified 12/16/24 08:45) Rash Medication List - Last Reconciled 12/16/24 by Ellen Yuen, STATIONS SUPERINTENDENT- escitalopram oxalate mg PO lorazepam 0.5 mg PO DAILY PRN melatonin 3 mg PO BEDTIME multivitamin with iron 1 tab PO DAILY olanzapine 1.25 mg PO BEDTIME Tobacco use date assessed: 12/16/24 Dental Screening Dental Screen Date: 12/16/24 Did you have a dental visit in the last 12 months?: Yes Did you have a dental problem in the last 6 months where you did not have access to dental care?: No Was dental information given to patient?: Patient has dentist HPI HPI Comments History of Present Illness Details 34 y/o F with SWETHA, MDD, Bipolar w psychosis, Mild anemia, Borderline HLD Hospitalizations: [facility], then [facility] in [place] for psych. Surgery: None Social: to , [place], no children. Fhx: Dad bipolar of suicide; Mom MS; Sister with anxiety. Health Maintenance Tdap declined Pap declined Wears contacts, eye exam UTD Specialists: Prescriber Telehealth Counselor active, good fit. History of Present Illness - The patient is a 34-year-old female presenting for a CPE and an interim follow-up regarding mental health and anemia. - Diagnosed bipolar disorder with psychosis, anxiety and depressive disorders. - Current medications: escitalopram, olanzapine (reduced), and lorazepam. - Mild anemia managed with multivitamin with iron. - No recent hospitalizations or surgeries. - Mood episodes reported as minor, brief, and controlled. - Borderline cholesterol noted, monitored annually. Social History - No current employment. - Engaged in therapy, focusing on mental health management. - No children. - Supportive noted. Health Maintenance - Mild anemia managed with multivitamin plus iron. - Borderline cholesterol noted, annual monitoring recommended. - No recent Pap smear, deferring due to mental health focus. Review of Systems - Psychiatric: Reports minor mood episodes, manageable and brief. - Hematologic: Denies any additional symptoms associated with mild anemia. - General: Denies recent hospitalizations, reports stable health status. Physical Exam General: Well developed, well nourished, in no acute distress. Appears stated age. Head: Normocephalic, atraumatic. Eyes: Pupils are equal, round and reactive to light and accommodation. Conjunctivae are clear. Vision grossly normal. Ears: cerumen impaction bilat. Nose: Patent, without discharge. Neck: Supple, no adenopathy or thyromegaly. Breast: Edu on SBE Lungs: Clear to auscultation bilaterally. No rales, rhonchi or wheeze noted. Good air flow in all dubon. Heart: Regular rate and rhythm. No murmurs, click, rubs or gallops are noted. Abdomen: Bowel sounds present in all quadrants. The abdomen is soft, nontender, with no masses or organomegaly noted. No hernias are noted. : Deferred. Reviewed SERINA & recommendations for routine ACCOUNT MANAGER B2B. Pulses: Peripheral pulses are equal and palpable bilaterally. Extremities: No clubbing, cyanosis nor edema is noted. Neurologic: Gait and station normal. Cranial Nerves 2-12 intact. Motor strength grossly symmetrical and intact. No sensory loss. Balance normal. Skin: No rashes, ulcers, or lesions noted. Turgor is good. Skin color is good. Hair and nails are without abnormalities. Psych: Normal eye contact, affect and mood appropriate, and normal interactions. Patient is alert and appropriate to context. Results - Labs: Mild anemia detected, borderline cholesterol levels identified. Discussion Notes I discussed with the patient the management of her diagnosed bipolar disorder with psychosis, anxiety disorder, and major depressive disorder. She is currently stable on escitalopram, reduced olanzapine, and lorazepam. We discussed the importance of medication adherence to prevent recurrence of episodes. Mild anemia was noted in her labs, for which she has begun a multivitamin with iron. Her borderline cholesterol is considered incidental, and annual monitoring is recommended. We addressed the dry wax in ears, offering an optional home treatment. The risks and necessity of Pap smear were evaluated, with the decision to defer focusing more on mental health at present. Follow-up is suggested in a year unless changes in health occur sooner. Patient was given time to ask questions. All questions were answered to their satisfaction. Assessment and Plan 1. Anxiety Disorder - Escitalopram, lorazepam ongoing. - Therapy engagement encouraged. 2. Major Depressive Disorder - Monitor mental status. 3. Bipolar Disorder with Psychosis - Maintain reduced olanzapine dose. - Emphasize medication adherence. 4. Mild Anemia - Continue multivitamin plus iron. 5. Hypercholesterolemia - Monitor annually. 6. Cerumen impaction - home tx w/ debrox Declined pap and Tdap. Patient Instructions - Continue taking prescribed medications: escitalopram, olanzapine, lorazepam. - Keep taking multivitamin with iron. - Attend therapy sessions regularly. - Consider ear wax treatment if comfortable. - Contact promptly if health changes before the next check. RTO 1 YEAR CPE, SOONER PRN Consent Patient was informed and verbally consented to the use of an ambient scribe for clinic note documentation during this visit. An additional 15 minutes was spent addressing the problem(s) noted at todays visit. This includes time spent before the visit reviewing the chart, time spent during the visit, and time spent after the visit on documentation reviewing laboratory results, diagnostic imaging, medications, performing a medically necessary evaluation, counseling on diagnoses, care coordination, ordering appropriate tests, ordering appropriate medications, review of tests performed by other providers, reporting test results with the patient, communication with other healthcare providers. [facility] Medical History (Updated 12/16/24 @ 09:21 by Ellen Yuen [facility]) Anxiety and depression Surgical History (Updated 10/29/24 @ 12:35 by Jannie Camp MA) No pertinent past surgical history Family History (Updated 10/29/24 @ 12:36 by Jannie Camp MA) Mother HTN (hypertension) High cholesterol Father HTN (hypertension) High cholesterol Substance abuse Mental health disorder Social History (Updated 10/29/24 @ 12:32 by Jannie Camp MA) Household Members: Spouse Both parents involved: No Caregiver staying overnight: No Housing: House Are you a primary career information specialist to a significant other at home: No Do you presently have visiting nurse or other home services: No 75 years or older and lives alone: No Alcohol intake: current Alcohol intake frequency: a few times a month Patient Tobacco Use Status: Never used Tobacco e-Cigarette/Vaping Use: Never Used Second Hand Smoke Exposure: No service: No Current occupational status: unemployed Cognitive needs: No Hearing needs: No Vision needs: No Questionnaire Thrive Questionnaire Date Thrive assessed: 10/22/24 I am a: Patient What is your living situation today?: I have a steady place to live Within the past 12 months, did the food you bought not last and you didn't have the money to get more?: Never true Within the past 12 months, did you worry whether your food would run out before you got money to buy more?: Never true Do you have trouble paying for medicines?: No Do you have trouble getting transportation to medical appointments?: No Do you have trouble paying your heating and electricity bill?: No Do you have trouble taking care of your child, family member or friend?: No Do you have trouble with day-to-day activities such as bathing, preparing meals, shopping, managing finances, etc.?: No Are you currently unemployed and looking for a job?: No Are you interested in more education?: No Please select the resources that you would like help with: None Currently or been in a relationship where the following occur: No concerns reported THRIVE Score: 0 SWETHA-7 AMB Questionnaire SWETHA-7 Date SWETHA - 7 assessed: 10/29/24 Source: Developed by Drs. Etienne Hardy, Maddy Pulliam, Derek Oleary and colleagues, with an educational aide from [employer]. Physical exam (Primary Care) Vital Signs: Last Vital Signs Temp 97.2 F 12/16/24 08:42 Pulse 65 12/16/24 08:42 Resp 12 12/16/24 08:42 BP 98/66 12/16/24 08:42 Pulse Ox 100 12/16/24 08:42 Oxygen Delivery Method Room Air 12/16/24 08:42 BMI result Body Mass Index 21.1 Tobacco/Smoking Status: Tobacco use Status Tobacco use date assessed 12/16/24 12/16/24 08:41 Patient Tobacco Use Status Never used Tobacco 12/16/24 08:41 e-Cigarette/Vaping Use Never Used 12/16/24 08:41 Thrive Assessment: Date of Thrive Assessment Date Thrive assessed 10/22/24 12/16/24 08:41 Currently or been in a relationship where the following occur: No concerns reported Coding Level of Care Code Est Pt Level 2 (53806) Est Pt Prev Care 18-39y(60583) Diagnoses Encounter for general adult medical examination without abnormal findings Z00.00 SWETHA (generalized anxiety disorder) F41.1 Severe episode of recurrent major depressive disorder, with psychotic features F33.3 Major depression episode severity: severe Psychotic features: with psychotic features Family history of bipolar disorder Z81.8 Moderate mixed hyperlipidemia not requiring statin therapy E78.2 Hyperlipidemia type: moderate mixed hyperlipidemia not requiring statin therapy Tetanus, diphtheria, and acellular pertussis (Tdap) vaccination declined Z28.21 Low ferritin R79.0 Papanicolaou smear declined Z53.20 Impacted cerumen, bilateral H61.23 Assessment & Plan Assessment & Plan (1) Encounter for general adult medical examination without abnormal findings: Onset Date: ~12/16/24 Code(s): Z00.00 - Encounter for general adult medical examination without abnormal findings Category: Medical (2) SWETHA (generalized anxiety disorder): Code(s): F41.1 - Generalized anxiety disorder Category: Medical (3) MDD (major depressive disorder), recurrent episode: Code(s): F33.9 - Major depressive disorder, recurrent, unspecified Category: Medical Qualifiers: Major depression episode severity: severe Psychotic features: with psychotic features Qualified Code(s): F33.3 - Major depressive disorder, recurrent, severe with psychotic symptoms (4) Family history of bipolar disorder: Comment: dad Code(s): Z81.8 - Family history of other mental and behavioral disorders Category: Medical (5) HLD (hyperlipidemia): Onset Date: ~10/30/24 Code(s): E78.5 - Hyperlipidemia, unspecified Category: Medical Qualifiers: Hyperlipidemia type: moderate mixed hyperlipidemia not requiring statin therapy Qualified Code(s): E78.2 - Mixed hyperlipidemia (6) Tetanus, diphtheria, and acellular pertussis (Tdap) vaccination declined: Code(s): Z28.21 - Immunization not carried out because of patient refusal Category: Medical (7) Low ferritin: Onset Date: ~10/30/24 Code(s): R79.0 - Abnormal level of blood mineral Category: Medical (8) Papanicolaou smear declined: Code(s): Z53.20 - Procedure and treatment not carried out because of patient's decision for unspecified reasons Category: Medical (9) Impacted cerumen, bilateral: Code(s): H61.23 - Impacted cerumen, bilateral Category: Medical Plan . Patient Instructions: Earwax (Cerumen Impaction) Created in Ears Earwax, called cerumen, is produced by special wax-forming glands located in the skin of the outer one-third of the ear canal. It is normal to have cerumen in ear canal as this waxy substance serves as a self-cleaning agent with protective, lubricating, and antibacterial properties. The absence of earwax may result in dry, itchy ears. Self-cleaning means there is a slow and truckload checker movement of earwax and skin cells from the eardrum to the ear opening. Old earwax is constantly being transported, assisted by chewing and jaw motion, from the ear canal to the ear opening where, most of the time, it dries, flakes, and falls out. What Are the Symptoms of an Earwax Blockage? Symptoms of an earwax problem may include: Earache Feeling of plugged hearing or fullness in the ear Partial hearing loss that gets worse Tinnitus, ringing, or noises in the ear Itching, odor, or discharge Coughing Pain Infection What Causes Earwax Blockage? When a patient has wax blockage against the eardrum, it is often because they have been probing the ear with such things as cotton-tipped swabs, kwasi pins, or twisted napkin corners. These objects only push the wax in deeper in the ear canal. Why Is It Dangerous to Use Swabs to Remove Earwax? Wax blockage is one of the most common causes of hearing loss. This is often caused by attempts to clean the ear with cotton swabs. Most cleaning attempts merely push the wax deeper into the ear canal which is shaped like an hourglass, causing a blockage at the narrowing part of the ear canal. In addition, accidental trauma to the ear drum or ear bones can occur if the swab is pushed too deep. Good intentions to keep ears clean may lessen the ability to hear. The ear is a delicate and complicated body part, including the skin of the ear canal and the eardrum. Therefore, special care should be given to this part of the body. Discontinue the habit of inserting cotton-tipped swabs or other objects into the ear canals. What Are the Treatment Options? Cleaning a working ear can be done by washing it with a soft cloth, but do not insert anything into the ear. Ideally, the ear canals should never have to be cleaned. However, that isn?t always the case. The ears should be cleaned when enough earwax gathers to cause symptoms or to prevent a needed assessment of the ear by your doctor. This condition is call cerumen impaction. Most cases of ear wax blockage respond to home treatments used to soften wax. Patients can try placing a few drops of mineral oil, baby oil, glycerin, or commercial drops in the ear. Detergent drops such as hydrogen peroxide or carbamide peroxide (available in most pharmacies) may also aid in the removal of wax. Irrigation or ear syringing is commonly used for cleaning and can be performed by a physician or at home using a commercially available irrigation kit. Common solutions used for syringing include water and saline, which should be warmed to body temperature to prevent dizziness. Ear syringing is most effective when water, saline, or wax dissolving drops are put in the ear canal 15 to 30 minutes before treatment. Caution is advised to avoid having your ears irrigated if you have diabetes, a hole in the eardrum (perforation), tube in the eardrum, skin problems such as eczema in the ear canal or a weakened immune system. >> If you have been prescribed Debrox, use as directed for 5 nights and return to the office on Day 6 for an ear lavage to remove the wax<< Manual removal of earwax is also effective. This is most often performed by an ENT (ear, nose, and throat) specialist, or three dimensional art instructor, using suction or special miniature instruments, and a microscope to magnify the ear canal. Manual removal is preferred if your ear canal is narrow, the eardrum has a perforation or tube, other methods have failed, or if you have skin problems affecting the ear canal, diabetes or a weakened immune system. When Should I Talk to a Doctor? If home treatments do not help, or if wax has accumulated so much that it blocks your ear canal and your ability to hear, an ENT specialist may prescribe eardrops designed to soften wax, or they may wash or vacuum it out. Your ENT specialist may also need to remove the wax under microscopic visualization. If there is a possibility of a perforation in the eardrum, consult a physician prior to trying any syfn-bth-fefglol remedies. Putting eardrops or other products in the ear with the presence of an eardrum perforation may cause pain or an infection. Washing water through such a hole could start an infection. If you are prone to repeated wax impaction or use hearing aids, consider seeing your doctor every six to 12 months for a checkup and routine preventive cleaning. What Questions Should I Ask My Doctor? What are the benefits and risks/side effects of different cerumen removal management options: earwax softening products, water irrigation vs. physical removal? Does cerumen accumulation vary with age, gender, familial or dietary intake? How do I manage swimming underwater with cerumen impaction? Should anything be done to the ears to prevent a buildup of earwax? How often should cerumen be removed from the ears? Are ear candles a safe option for removing earwax? Health screenings for women You should visit your health care provider from time to time, even if you are healthy. The purpose of these visits is to: Screen for medical issues Assess your risk for future medical problems Encourage a healthy lifestyle Update vaccinations and other preventive care services Help you get to know your provider in case of an illness Information Even if you feel fine, you should still see your provider for regular checkups. These visits can help you avoid problems in the future. For example, the only way to find out if you have high blood pressure is to have it checked regularly. High blood sugar and high cholesterol levels also may not have any symptoms in the early stages. A simple blood test can check for these conditions. There are specific times when you should see your provider or receive specific health screenings. The [place] Preventive Services Task Force publishes a list of recommended screenings. Below are screening guidelines for women ages 18 to 39. BLOOD PRESSURE SCREENING Your blood pressure should be checked at least once every 3 to 5 years if: Your blood pressure is in the normal range (top number less than 120 mm Hg and bottom number less than 80 mm Hg) You don't have risk factors for high blood pressure Ask your provider if you need your blood pressure checked more often if: The top number is 120 to 129 mm Hg or the bottom number is 70 to 79 mm Hg You have diabetes, heart disease, kidney problems, are overweight, or have certain other health conditions You have a first-degree relative with high blood pressure You are Black You had high blood pressure during a If the top number is 130 mm Hg or greater or the bottom number is 80 mm Hg or greater, this is considered stage 1 hypertension. Schedule an appointment with your provider to learn how you can reduce your blood pressure. Watch for blood pressure screenings in your area. Ask your provider if you can stop in to have your blood pressure checked. BREAST CANCER SCREENING Experts do not agree about the benefits of breast self-exams in finding breast cancer or saving lives. Talk to your provider about what is best for you. A screening mammogram is not recommended for most women under age 40. Your provider may discuss and recommend mammograms, MRI scans, or ultrasounds if you have an increased risk for breast cancer, such as: A mother or sister who had breast cancer at a young age (most often starting screening earlier than the age the close relative was diagnosed) You carry a high-risk genetic marker CERVICAL CANCER SCREENING Cervical cancer screening should start at age 21 years unless your provider advises otherwise. After the first test: Women ages 21 through 29 should have a Pap test every 3 years. Exoprts do not agree on whether HPV testing is recommended for this age group. Women ages 30 through 65 should be screened with either a Pap test every 3 years or the HPV test every 5 years or both tests every 5 years (called cotesting ). Women who have been treated for precancer (cervical dysplasia) should continue to have Pap tests for 20 years after treatment or until age 65, whichever is longer. If you have had your uterus and cervix removed (total hysterectomy), and you have not been diagnosed with cervical cancer or precancer (high grade cervical neoplasia), you do not need cervical cancer screening. CHOLESTEROL SCREENING Cholesterol screening should begin at: Age 45 for women with no known risk factors for coronary heart disease Age 20 for women with known risk factors for coronary heart disease Repeat cholesterol screening should take place: Every 5 years for women with normal cholesterol levels More often if changes occur in lifestyle (including weight gain and diet) More often if you have diabetes, heart disease, kidney problems, or certain other conditions DIABETES SCREENING You should be screened for diabetes starting at age 35 and then repeated every 3 years if you have no risk factors for diabetes. Screening may need to start earlier and be repeated more often if you have other risk factors for diabetes, such as: You have a first degree relative with diabetes. You are overweight or have obesity. You have high blood pressure, prediabetes, or a history of heart disease. Screening for diabetes should be done if you are planning to become and you are overweight and have other risk factors such as high blood pressure. DENTAL EXAM Go to the dentist once or twice every year for an exam and cleaning. Your dentist will evaluate if you need more frequent visits. EYE EXAM Have an eye exam every 5 to 10 years before age 40. If you have vision problems, have an eye exam every 2 years or more often if recommended by your provider. You should have an eye exam that includes an examination of your retina (back of your eye) at least every year if you have diabetes. IMMUNIZATIONS Commonly needed vaccines include: Flu shot: get one every year. COVID-19 vaccine: ask your provider what is best for you. Tetanus-diphtheria and acellular pertussis (Tdap) vaccine: have one at or after age 19 as one of your tetanus-diphtheria vaccines if you did not receive it as an adolescent. Tetanus-diphtheria: have a booster (or Tdap) every 10 years. Varicella vaccine: receive 2 doses if you never had chickenpox or the varicella vaccine. Hepatitis B vaccine: receive 2, 3, or 4 doses, depending on your exact circumstances. Measles, mumps, and rubella (MMR) vaccine: receive 1 to 2 doses if you are not already immune to MMR. Your provider can tell you if you are immune. Ask your provider about the human papillomavirus (HPV) vaccine if: You have not received the HPV vaccine in the past You have not completed the full vaccine series (you should catch up on this shot) Ask your provider if you should receive other immunizations if you have certain health problems that increase your risk for some diseases such as pneumonia. INFECTIOUS DISEASE SCREENING Women who are sexually active should be screened for chlamydia and gonorrhea up until age 25. Women 25 years and older should be screened for chlamydia and gonorrhea if at high risk. Screening for hepatitis C: All adults ages 18 to 79 should get a one-time test for hepatitis C. people should be screened at every . Screening for human immunodeficiency virus (HIV): All people ages 15 to 65 should get a one-time test for HIV. Depending on your lifestyle and medical history, you may also need to be screened for infections such as syphilis and HIV, as well as other infections. PHYSICAL EXAM All adults should visit their provider from time to time, even if they are healthy. The purpose of these visits is to: Screen for disease Assess your risk of future medical problems Encourage a healthy lifestyle Update your vaccinations and other preventive care services Maintain a relationship with a provider in case of an illness Your height, weight, and BMI should be checked at every exam. During your exam, your provider may ask you about: Depression and anxiety Diet and exercise Alcohol and tobacco use Safety issues, such as using seat belts, smoke detectors, and intimate partner violence Your medicines and risk for interactions SKIN SELF-EXAM Your provider may check your skin for signs of skin cancer, especially if you're at high risk, such as if you: Have had skin cancer before Have close relatives with skin cancer Have a weakened immune system OTHER SCREENING Talk with your provider about colon cancer screening if you have a strong family history of colon cancer or polyps, or if you have had inflammatory bowel disease or polyps yourself. Routine bone density screening of women under 40 is not recommended.
--- OUTSIDE RECORDS SUMMARY | 2024-12-16 08:41 | XMS_ITS | Clinical Summary ---
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 Name Role Phone Fausto Fernandez MD Primary Care Provide r Allergies No known active allergies Medications No known medications Encounters Date Type Department Care Team Description 09/20/2024 11:16 AM EDT - 09/21/2024 9:57 AM EDT Emergency [facility] Emergency [address] [place] [address] Celia Cota DO Psychosis, unspecified psychosis type ([facility] V24, [facility] V28) (Primary Dx) [facility]charge Disposition: [facility] from Last 3 Months Medical History Medical History Date Comments Patient denies medical problems 09/20/2024 Bipolar disorder, unspecified ([facility] V24, [facility] V28) 09/20/2024 per [facility] clinician Social History Tobacco Use Types Packs/Day [...] Vaccine (2023-2 5 season) 2024 Depression Screening 05/13/2024 HIV Screening 09/20/2024 Hepatitis C Screening 09/20/2024 Social Influencers of Health Screening 09/20/2024 Influenza Vaccine (#1) 2025 HIB Vaccines Aged Out No longer [...] 5 Years) and At-Risk Patients (6 to 49 Years) Aged Out No longer eligible b [...] and culture (09/20/2024 11:40 AM EDT) Specific [place] Urine 1.011 1.003 - 1.030 LAB URINALYSIS - AUTOMATED METHOD 09/20/2024 12:29 PM EDT [facility] pH, Urine 6.0 5.0 - 8.0 pH LAB URINALYSIS - AUTOMATED METHOD 09/20/2024 12:29 PM EDT [facility] Leukocytes, Urine Negative Negative LAB URINALYSIS [...] DO LAB URINE ORDERABLES Hortencia l Result [facility] [address] [place] [address], [place] [phone] * Ayala urine culture tube (09/20/2024 11:40 AM EDT) Extra Tube Hold for add-ons. 09/20/2024 2:01 PM EDT [facility] Comment:Auto resulted. Urine Urine specimen obtained by clean catch procedure / Unknown Non-blood Collection / Unknown 09/20/2024 11:40 AM EDT 09/20/2024 12:07 PM EDT Celia Cota DO LAB URINE ORDERABLES Hortencia l Result [facility] [address] [place] [address], [place] [phone] * POC , urine manually resulted (09/20/2024 [...] LAB CHEMISTRY METHOD 09/20/2024 12:37 PM EDT [facility] Comment:Certain OTC medicati ons containing ephedrine, phenylephrine, pseudoephedrine and phenylpropanolamine can cause false positive results. Barbiturate Screen, Ur Negative Negative LAB CHEMISTRY METHOD 09/20/2024 12:37 PM EDT [facility] Benzodiazepine Screen, Ur Negative Negative LAB CHEMISTRY METHOD 09/20/2024 12:37 PM EDT [facility] Cocaine Screen, Ur Negative Negative LAB CHEMISTRY METHOD 09/20/2024 12:37 PM EDT [facility] Opiate Screen, Ur Negative Negative LAB CHEMISTRY METHOD 09/20/2024 12:37 PM EDT [facility] Cannabinoid (THC) Screen, Ur Negative Negative LAB CHEMISTRY METHOD 09/20/2024 12:37 PM EDT [facility] Comment:Specimens from patie nts taking pantoprazole sodium (Protonix) have been shown to produce false positive results. Oxycodone Screen, Ur Negative Negative LAB CHEMISTRY METHOD 09/20/2024 12:37 PM EDT [facility] Fentanyl, Ur Negative Negative LAB CHEMISTRY METHOD 09/20/2024 12:37 PM EDT [facility] Urine Urine specimen obtained by clean catch procedure / Unknown Non-blood Collection / Unknown 09/20/2024 11:11 AM EDT 09/20/2024 12:08 PM EDT [facility] - 09/20/2024 12:37 PM EDT Assay cutoffs: Amphetamines 1000 ng/mL Barbiturates 200 ng/mL Benzodiazepines 200 ng/mL Cocaine 300 ng/mL Fentanyl 1 ng/mL Opiates 300 ng/mL Oxycodone 100 ng/mL THC 50 ng/mL Semi-quantitative assay for screening purposes only. Unconfirmed screening result should not be used for non-medical purposes. *ALTERNATE METHOD CONFIRMATION DONE UPON REQUEST ONLY* [facility] LAB URINE ORDERABLES Hortencia l Result [facility] [address] [place] [address], [place] [phone] * Buprenorphine screen, urine (09/20/2024 11:11 AM EDT) Buprenorphine Screen Urine Negative Negative LAB CHEMISTRY METHOD 09/20/2024 12:37 PM EDT [facility] Urine Urine specimen obtained by clean catch procedure / Unknown Non-blood Collection / Unknown 09/20/2024 11:11 AM EDT 09/20/2024 12:08 PM EDT [facility] - 09/20/2024 12:37 PM EDT Assay cutoff 5 ng/mL Semi-quantitative assay for screening purposes only. Unconfirmed screening result should not be used for non-medical purposes. *ALTERNATE METHOD CONFIRMATION DONE UPON REQUEST ONLY* us Ting Ho Mushtaq Cota DO LAB URINE ORDERABLES Hortencia l Result Performing Organization Address [facility]/ZIP Co de Phone Number [facility] [address] [place] [address], [place] [phone] * Methadone, urine (09/20/2024 11:11 AM EDT) Methadone Screen, Urine Negative Negative LAB CHEMISTRY METHOD 09/20/2024 12:37 PM EDT [facility] Comment: Assay cutoff 300 ng/mL Semi-quantitative [...] ORDERABLES Hortencia l Result Performing Organization Address [facility] Co de Phone Number [facility] [address] [place] [address], [place] [phone] * Phencyclidine, urine (09/20/2024 11:11 AM EDT) PCP Scrn, Ur Negative Negative LAB CHEMISTRY METHOD 09/20/2024 12:37 PM EDT [facility] Comment: Assay cutoff 25 ng/mL Semi-quantitative [...] ORDERABLES Hortencia l Result Performing Organization Address [facility]/ZIP Co de Phone Number [facility] [address] [place] [address], [place] [phone] * (ABNORMAL) CBC auto differential (09/20/2024 10:54 AM EDT) [facility] Signature WBC 12.9(H) 4.8 - 10.8 K/mcL [...] LAB HEMETOLOGY METHOD 09/20/2024 11:07 AM EDT [facility] Blood Venous blood specimen / Unknown Venipuncture / Unknown 09/20/2024 10:54 AM EDT 09/20/2024 11:00 AM EDT us Celia Cota DO LAB BLOOD ORDERABLES Hortencia l Result Performing Organization Address [facility]/ZIP Co de Phone Number [facility] [address] [place] [address], [place] [phone] * Ethanol (09/20/2024 10:54 AM EDT) Ethanol Level 5 0 - 10 mg/dL LAB CHEMISTRY METHOD 09/20/2024 11:26 AM EDT [facility] Blood Venous blood specimen / Unknown Venipuncture / Unknown 09/20/2024 10:54 AM EDT 09/20/2024 11:00 AM EDT Celia Cota DO LAB BLOOD ORDERABLES Hortencia l Result Performing Organization Address [facility] Co de Phone Number [facility] [address] [place] [address], [place] [phone] * (ABNORMAL) Acetaminophen level (09/20/2024 10:54 AM EDT) Acetaminophen Level <2.0(L) 10.0 - 30.0 mcg/mL LAB CHEMISTRY METHOD 09/20/2024 11:31 AM EDT [facility] Blood Venous blood specimen / Unknown Venipuncture / Unknown 09/20/2024 10:54 AM EDT 09/20/2024 11:00 AM EDT Celia Cota DO LAB BLOOD ORDERABLES Hortencia l Result Performing Organization Address City/[facility]/ZIP Co de Phone Number [facility] [address] [place] [address], [place] [phone] * Salicylate level (09/20/2024 10:54 AM EDT) Pathologist [facility] Salicylate Level 2.0 2.0 - 29.0 mg/dL LAB CHEMISTRY METHOD 09/20/2024 11:[address] [facility] Blood Venous blood specimen / Unknown Venipuncture / Unknown 09/20/2024 10:54 AM EDT 09/20/2024 11:00 AM EDT us Celia Landin Cota DO LAB BLOOD ORDERABLES Hortencia l Result [facility] [address] [place] [address], [place] [phone] * (ABNORMAL) Comprehensive metabolic panel (09/20/2024 10:54 AM EDT) Pathologist [facility] Sodium 141 133 - 145 mmol/L LAB [...] DO LAB BLOOD ORDERABLES Hortencia l Result [facility] [address] [place] [address], [place] [phone] from Last 3 Months Insurance [facility] [employer] 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
[2024-12-16 08:42] VITALS: BP 98/66; PULSE 65; RESP 12; TEMP 36.2; O2SAT 100; BMI 21.1
== END 2024-12-16 09:00 | disposition home or self-care (01) ==
LOC: HO.HMCFM 08:31
PROVIDERS: PCP Nurse Practitioner Family; Visit Provider Nurse Practitioner Family
DX: Z00.00 Encounter for general adult medical examination without abnormal findings (principal); E78.2 Mixed hyperlipidemia; F41.1 Generalized anxiety disorder; F33.3 Major depressive disorder, recurrent, severe with psychotic symptoms; Z81.8 Family history of other mental and behavioral disorders; Z28.21 Immunization not carried out because of patient refusal; R79.0 Abnormal level of blood mineral; Z53.20 Procedure and treatment not carried out because of patient's decision for unspecified reasons; H61.23 Impacted cerumen, bilateral

== ENCOUNTER → 2024-12-16 08:31 | Outpatient (BNVA) | payer OTHER, SELFPAY | PROVIDERS: PCP Nurse Practitioner Family; Visit Provider Nurse Practitioner Family | DX: F41.1 Generalized anxiety disorder (principal); F31.9 Bipolar disorder, unspecified; D64.9 Anemia, unspecified; E78.00 Pure hypercholesterolemia, unspecified; E78.5 Hyperlipidemia, unspecified; R79.0 Abnormal level of blood mineral; H61.23 Impacted cerumen, bilateral; Z81.8 Family history of other mental and behavioral disorders; Z28.21 Immunization not carried out because of patient refusal; Z79.899 Other long term (current) drug therapy | CPT/HCPCS: 99212; 99395 ==

== ENCOUNTER 2025-03-29 08:31 | Outpatient (AMB) | payer OTHER, SELFPAY ==
--- NOTE | 2025-03-29 08:32 | MHC.PC.OV ---
Vital Signs 03/29/25 08:36 Height 5 ft 1 in Weight 117 lb 6 oz BMI 22.2 BP 115/68 Blood Pressure Location Lt brachial Position Sitting Respiration 12 Pulse 85 Pulse Source Pulse Oximeter Temp 97.6 F Temp Source Oral Pulse Oximetry (%) 98 Oxygen Delivery Method Room Air Intake Visit Reasons: Panic attack,discuss referral Intake Note: Patient c/o panic attack last Audio Visual Arts Director Required: No Allergies lamotrigine Allergy (Severe, Verified 03/29/25 08:40) Rash Medication List - Last Reconciled 03/29/25 by Ellen Yuen, LENDING ACTIVITIES SUPERVISOR- escitalopram oxalate mg PO lorazepam 0.5 mg PO DAILY PRN multivitamin with iron 1 tab PO DAILY olanzapine 1.25 mg PO BEDTIME Tobacco use date assessed: 03/29/25 Dental Screening Dental Screen Date: 03/29/25 Did you have a dental visit in the last 12 months?: Yes Did you have a dental problem in the last 6 months where you did not have access to dental care?: No Was dental information given to patient?: Patient has dentist HPI HPI Comments History of Present Illness Details 35 y/o F with SWETHA, MDD, Bipolar w psychosis, Mild anemia, Borderline HLD Hospitalizations: [facility] Psych, then [facility] in [place] for psych. Surgery: None Social: to , [place], no children. Fhx: Dad bipolar of suicide; Mom MS; Sister with anxiety. Health Maintenance Tdap declined Pap declined Wears contacts, eye exam UTD Specialists: Prescriber Telehealth Counselor active, good fit. History of Present Illness The patient is a 35 year old female presenting with a panic attack. Here w/ today. Panic Disorder: - The patient has a past medical history of anxiety and depression, and has been feeling well on escitalopram. - She experienced a panic attack last , which was triggered by a distressing phone call from her mother. - Symptoms included shaking of her hands and body, chills, and a feeling of being in shock, but no paresthesias. - Her assisted with grounding exercises, which calmed her down over the course of an hour. - The episode was re-triggered later that night during another conversation with her mother, leading to a spiral of fearful thoughts about having a serious mental illness such as bipolar disorder or schizophrenia. - The prolonged episode involved a dreamlike state (derealization), delusional thoughts of being in purgatory, and racing thoughts that prevented sleep. - She took olanzapine, which helped her sleep, and she felt better the following morning. - This is the third major episode; the first occurred in June after ingesting an Adderall/THC edible, and the second was in September, resulting in a hospitalization where the diagnosis was uncertain. - The episodes are characterized by recurring - Her psychopharmacologist has largely ruled out bipolar disorder and her therapist suggested possible PTSD with derealization. - During this recent attack, she felt grounded by her 's presence and was not fearful of him, which was an improvement from prior episodes. Past Medical History - Anxiety - Depression - Bipolar disorder with psychosis considered, but now thought to be unlikely by her specialist. - Hospitalization in September for a panic attack with psychosis-like features. - History of one-time THC edible use in June, which precipitated her first severe episode. Review of Systems - Constitutional: Reports chills and shaking during panic attacks. - Psychiatric: Reports anxiety, depression, and panic attacks. - During episodes, reports derealization, racing thoughts, and delusional thinking, including fears of dying or being in purgatory. - Neurological: Denies paresthesias. Physical Exam General: Well developed, well nourished, in no acute distress. Appears stated age. Head: Normocephalic, atraumatic. Eyes: Pupils are equal, round and reactive to light and accommodation. Conjunctivae are clear. Vision grossly normal. Lungs: Clear to auscultation bilaterally. No rales, rhonchi or wheeze noted. Good air flow in all [place]. Heart: Regular rate and rhythm. No murmurs, click, rubs or gallops are noted. Extremities: No clubbing, cyanosis nor edema is noted. Psych: Mood and affect appropriate Medical Decision Making The patient is a 35-year-old female with a history of anxiety and depression who presents to discuss a recent severe panic attack. Her symptoms, which include derealization and delusional thought loops, are recurrent and distressing. Although the initial episode was precipitated by substance use, subsequent episodes have occurred without any clear substance trigger, suggesting this is not a substance-induced phenomenon. The diagnostic picture is complex and requires specialist input from her existing mental health team. Her psychopharmacologist is considering a diagnosis other than bipolar disorder, and her therapist has suggested a trauma-related disorder. It is encouraging that the patient had olanzapine available, which was effective in managing the acute insomnia and distress from the most recent episode. The plan is to strongly encourage follow-up with her psychiatrist and therapist to establish a definitive diagnosis and treatment plan. To ensure patient safety, resources including a crisis hotline and information on local mental health walk-in clinics will be provided, offering an avenue for acute care and clinical observation should another episode occur. Plan 1. Panic Disorder With Derealization - The patient presents with recurrent, severe episodes of panic, characterized by shaking, derealization, and delusional thought loops, recently triggered by an external stressor. - The underlying diagnosis remains unclear, though her psychopharmacologist has largely ruled out bipolar disorder. I do not have any of these records, therefore the dx will not be removed from her chart at this time. - It was advised that the patient continue follow-up with her psychopharmacologist and therapist to clarify the diagnosis and management plan. - The patient has an upcoming therapy appointment and has successfully moved up her appointment with her psychopharmacologist. - Patient will be provided with the crisis line number and information on mental health walk-in clinics for support during any future acute episodes. - Influenza vaccination was offered and declined. Patient Instructions - Please make sure you follow up with your therapist and your medication provider (psychopharmacologist) to help them understand what is causing these episodes. - I will provide you with the phone number for a crisis line on your discharge paperwork. It is important to have this in case you ever need immediate support and cannot reach your team. - We will also give you information about local walk-in mental health clinics. If you have another episode, you can go to one of these clinics to be seen by a professional right away. - You have declined the flu shot today. Consent Patient was informed and verbally consented to the use of an ambient scribe for clinic note documentation during this visit. Total time spent caring for the patient today was 30 minutes. This includes time spent before the visit reviewing the chart, time spent during the visit, and time spent after the visit on documentation, reviewing laboratory results, diagnostic imaging, medications, performing a medically necessary evaluation, counseling on diagnoses, care coordination, ordering appropriate tests, ordering appropriate medications, review of tests performed by other providers, reporting test results with the patient, communication with other healthcare providers. [facility] Medical History (Updated 03/29/25 @ 08:58 by Ellen Yuen [facility]) Anxiety and depression Surgical History (Updated 10/29/24 @ 12:35 by Jannie Camp MA) No pertinent past surgical history Family History (Updated 10/29/24 @ 12:36 by Jannie Camp MA) Mother HTN (hypertension) High cholesterol Father HTN (hypertension) High cholesterol Substance abuse Mental health disorder Social History (Updated 10/29/24 @ 12:32 by Jannie Camp MA) Household Members: Spouse Both parents involved: No Caregiver staying overnight: No Housing: House Are you a primary healthcare marketer to a significant other at home: No Do you presently have visiting nurse or other home services: No 75 years or older and lives alone: No Alcohol intake: current Alcohol intake frequency: a few times a month Patient Tobacco Use Status: Never used Tobacco e-Cigarette/Vaping Use: Never Used Second Hand Smoke Exposure: No service: No Current occupational status: unemployed Cognitive needs: No Hearing needs: No Vision needs: No Questionnaire PHQ-9 Over the last 2 weeks, how often have you been bothered by any of the following problems? 1. Little interest or pleasure in doing things: several days 2. Feeling down, depressed, or hopeless: several days 3. Trouble falling or staying asleep, or sleeping too much: not at all 4. Feeling tired or having little energy: several days 5. Poor appetite or overeating: not at all 6. Feeling bad about yourself - or that you are a failure or have let yourself or your family down: several days 7. Trouble concentrating on things, such as reading the newspaper or watching television: several days 8. Moving or speaking so slowly that other people could have noticed. Or the opposite - being so fidgety or restless that you have been moving around a lot more than usual: not at all 9. Thoughts that you would be better off or of hurting yourself in some way: not at all Total score: 5 Depression Screening Interpretation: Positive Depression Screening Done: Yes 85423 - PHQ-9 Billing: Yes Source: Developed by Drs. Etienne Hardy, Derek Flanagan and colleagues, with an educational aide from [employer]. Thrive Questionnaire Date Thrive assessed: 03/29/25 I am a: Patient What is your living situation today?: I have a steady place to live Within the past 12 months, did the food you bought not last and you didn't have the money to get more?: Never true Within the past 12 months, did you worry whether your food would run out before you got money to buy more?: Never true Do you have trouble paying for medicines?: No Do you have trouble getting transportation to medical appointments?: No Do you have trouble paying your heating and electricity bill?: No Do you have trouble taking care of your child, family member or friend?: No Do you have trouble with day-to-day activities such as bathing, preparing meals, shopping, managing finances, etc.?: No Are you currently unemployed and looking for a job?: No Are you interested in more education?: No Please select the resources that you would like help with: None Currently or been in a relationship where the following occur: No concerns reported THRIVE Score: 0 SWETHA-7 AMB Questionnaire SWETHA-7 Date SWETHA - 7 assessed: 03/29/25 Feeling nervous, anxious, or on edge: 1 = Several days Not being able to stop or control worryin = Several days Worrying too much about different things: 0 = Not at all Trouble relaxin = Not at all Being so restless that it is hard to sit still: 0 = Not at all Becoming easily annoyed or irritable: 1 = Several days Feeling afraid as if something awful might happen: 1 = Several days Total SWETHA-7 score (0-4 normal; 5-9 mild; 10-14 moderate; 15-21 severe): 4 Source: Developed by Drs. Etienne Hardy, Maddy Pulliam, Derek Oleary and colleagues, with an educational aide from [employer]. SWETHA-7 Assessment Billing SWETHA-7 Assessment Tool: SWETHA-7 Assessment 20815 Physical exam (Primary Care) Vital Signs: Last Vital Signs Temp 97.6 F 03/29/25 08:36 Pulse 85 03/29/25 08:36 Resp 12 03/29/25 08:36 BP 115/68 03/29/25 08:36 Pulse Ox 98 03/29/25 08:36 Oxygen Delivery Method Room Air 03/29/25 08:36 BMI result Body Mass Index 22.2 Tobacco/Smoking Status: Tobacco use Status Tobacco use date assessed 03/29/25 03/29/25 08:35 Patient Tobacco Use Status Never used Tobacco 03/29/25 08:35 e-Cigarette/Vaping Use Never Used 03/29/25 08:35 Depression Screening Interpretation: Positive Thrive Assessment: Date of Thrive Assessment Date Thrive assessed 03/29/25 03/29/25 08:39 Currently or been in a relationship where the following occur: No concerns reported Coding Level of Care Code Est Pt Level 4 (86532) Complex EM visit Add On G2211 Diagnoses Panic attack F41.0 Severe episode of recurrent major depressive disorder, with psychotic features F33.3 Major depression episode severity: severe Psychotic features: with psychotic features SWETHA (generalized anxiety disorder) F41.1 Delusions F22 Influenza vaccination declined Z28.21 Additional Codes SWETHA-7 Assessment Billing - SWETHA-7 Assessment Tool: SWETHA-7 Assessment 29871 ([id number]) PHQ-9 - 32602 - PHQ-9 Billing: Yes ([id number]) Assessment & Plan Assessment & Plan (1) Panic attack: Code(s): F41.0 - Panic disorder [episodic paroxysmal anxiety] Category: Medical (2) MDD (major depressive disorder), recurrent episode: Code(s): F33.9 - Major depressive disorder, recurrent, unspecified Category: Medical Qualifiers: Major depression episode severity: severe Psychotic features: with psychotic features Qualified Code(s): F33.3 - Major depressive disorder, recurrent, severe with psychotic symptoms (3) SWETHA (generalized anxiety disorder): Code(s): F41.1 - Generalized anxiety disorder Category: Medical (4) Delusions: Code(s): F22 - Delusional disorders Category: Medical (5) Influenza vaccination declined: Onset Date: ~03/29/25 Code(s): Z28.21 - Immunization not carried out because of patient refusal Category: Medical Plan . Patient Instructions: National Suicide and Crisis Lifeline: Available 24 hours a day, 7 days a week, 365 days a year Dial 988 with any telephone to speak to someone immediately [address] [place] [address] , Walk ins [facility] (Mental / Behavioral health therapist: [address] [place] [address] [facility]: [address] [place] [address] Open from 10am - 12pm (walk ins [place]) [facility] Crisis Services: [address] [place] [address] Walk in hours from 10am - 12pm Behavioral health Network: [address] [place] [address] [place] [address] [phone] Saturday through Saturday 8am - 8pm Saturday and Saturday 9am - 5pm Crisis Hotlines Suicide prevention, domestic violence, and other crisis hotlines for youth, young adults, and their friends and families. [facility] Safeline: The [facility] Safeline helps youth who have run away, are thinking about running away, or who already ran away but are ready to come home. Parents and guardians can also contact the hotline if they are worried about their child running away or if their child has already left home. The hotline is available 24 hours a day, seven days a week. Youth, parents, and guardians can also use the online chat feature on the [facility]'s website to ask for help and get support, [place] [address]. [facility] National Suicide Prevention Lifeline: The National Suicide Prevention Lifeline is a network of local crisis centers that are available 03/12 to provide support for youth and adults who are in any kind of emotional crisis. In addition to the main hotline number listed above, there are several other numbers to call depending on your needs: Ukrainian Language: Deaf and Hard of Hearin1-693.862.6499 Veterans: Disaster Distress: Anyone can also use their online chat feature on their website. National Suicide Prevention Lifeline [facility] Helpline: The [facility] Helpline is available to anyone in [place] who is need of emotional support. Anyone can call or text the helpline to receive help from specially trained volunteers. [place] high school and college students can also get online support through the IM[employer]_ program. For high school students, volunteers ages 15-18 are available Saturday- from 6-9PM. For college students, [employer]_ is available Saturday-Saturday from 5-9PM. The Aaron Project - The Aaron Project is a 03/12 crisis intervention and suicide prevention hotline for LGBTQ youth. Youth can also text Aaron to for support, or use the online chat feature on the [employer] Project's website. [employer] is available Saturday-Saturday between 3-10PM. [employer]Chat is available seven days a week between 3-10PM. SafeLink: SafeLink is for anyone who is being affected by domestic violence or dating violence. Volunteers at [employer] by [employer] speak Hungarian and Ukrainian, and [employer] also has a service that can provide translation in more than 130 languages. TTY:
[2025-03-29 08:36] VITALS: BP 115/68; PULSE 85; RESP 12; TEMP 36.4; O2SAT 98; BMI 22.2
== END 2025-03-29 08:59 | disposition home or self-care (01) ==
LOC: HO.HMCFM 08:31
PROVIDERS: PCP Nurse Practitioner Family; Visit Provider Nurse Practitioner Family
DX: F33.3 Major depressive disorder, recurrent, severe with psychotic symptoms (principal); F41.0 Panic disorder [episodic paroxysmal anxiety]; F41.1 Generalized anxiety disorder; Z28.21 Immunization not carried out because of patient refusal

== ENCOUNTER → 2025-03-29 08:31 | Outpatient (BNVA) | payer OTHER, SELFPAY | PROVIDERS: PCP Nurse Practitioner Family; Visit Provider Nurse Practitioner Family | DX: F41.0 Panic disorder [episodic paroxysmal anxiety] (principal); F33.3 Major depressive disorder, recurrent, severe with psychotic symptoms; F41.1 Generalized anxiety disorder; Z28.21 Immunization not carried out because of patient refusal | CPT/HCPCS: 96127; 99212 ==